=== PATIENT | female | born 1955 | race Caucasian/White ===

== ENCOUNTER 2018-12-24 16:41 | Emergency (ER) | payer MEDICARE, OTHER ==
[~2018-12-24] VITALS: Ht 162.6 cm; Wt 86.2 kg
[2018-12-24 18:50] VITALS: BP 132/72
== END 2018-12-24 18:50 | disposition home or self-care (01) ==
LOC: M.ERS 16:41
DX: M79.604 Pain in right leg (principal); Z88.5 Allergy status to narcotic agent; Z88.8 Allergy status to other drugs, medicaments and biological substances